=== PATIENT | male | born 1965 | race Two or more races ===

== ENCOUNTER 2019-04-28 09:09 | Inpatient (IN) | payer OTHER ==
[~2019-04-28] VITALS: Ht 167.6 cm; Wt 83.5 kg
--- NOTE | 2019-04-28 09:41 | NUR ---
[facility]. TO ER BED 1. CALLED IN BY . AAOX1. BULGARIAN SPEAKING. NOT IN RESP DISTRESS, BREATHING EVEN AND UNLABORED. BROUGHT FOR ALTERED MENTAL STATUS. PER REPORT, PT HAS BEEN NOTED SINCE MIDNIGHT THAT HE IS NOT HIMSELF PER THE , HE IS RAMBLING AND HAVING UNSTEADY GAIT WHILE GOING TO THE BATHROOM. UPON ASSESSMENT, PT DENIES AND MEDICAL ISSUES. NOTED ABD DISTENTION. BILAT LOWER EXT EDEMA +4. SCLERAL YELLOWING. MD WAS AT BEDSIDE FOR EVAL. ORDERS RECEIVED NOTED AND CARRIED OUT. IV LINE ON L & R HAND 20G. BLOOD DRAWN AND GIVEN TO IMPROVEMENT LEADER AT BEDSIDE.
[2019-04-28 09:43] LABS: BASOPHILS % (AUTO) 0.2 % (0.0-2.0); EOSINOPHILS % (AUTO) 1.7 % (0.0-6.0); HEMATOCRIT 31 % (39-51); HEMOGLOBIN 10.1 g/dL (13.5-17.5); LYMPHOCYTES # (AUTO) 0.3 /CMM (0.8-4.8); LYMPHOCYTES % (AUTO) 5.3 % (20.0-44.0); MEAN CORPUSCULAR HGB CONC 33 g/dl (31.0-36.0); MEAN CORPUSCULAR VOLUME 110 fL (80-96); MONOCYTES # (AUTO) 0.6 /CMM (0.1-1.30); MONOCYTES % (AUTO) 8.9 % (2.0-12.0); NEUTROPHILS # (AUTO) 5.2 /CMM (1.8-8.9); NEUTROPHILS % (AUTO) 83.9 % (43.0-81.0); PLATELET COUNT (AUTO) 77 /CMM (150-450); RED BLOOD CELL COUNT(AUTO) 2.79 MIL/uL (4.5-6.0); WHITE BLOOD COUNT (AUTO) 6.2 K/uL (4.3-11.0)
[2019-04-28 09:50] LABS: CALCIUM, SERUM 8.2 mg/dL (8.5-10.1); CARBON DIOXIDE 21 mmol/L (21-32); CHLORIDE 105 mmol/L (98-107); GLUCOSE 96 mg/dL (74-106); POTASSIUM 4.3 mmol/L (3.5-5.1); SODIUM SERUM 135 mmol/L (136-145); UREA NITROGEN, BLOOD 15 mg/dL (7-18)
[2019-04-28 10:00] LABS: ALANINE AMINOTRANSFERASE 53 U/L (12-78); ALCOHOL, BLOOD < 3 mg/dL (0-0); ALKALINE PHOSPHATASE 232 U/L (46-116); ASPARTATE AMINOTRANSFERASE 161 U/L (15-37); BILIRUBIN,DIRECT 5.9 mg/dL (0.0-0.2); BILIRUBIN,TOTAL 8.9 mg/dL (0.2-1.0); TOTAL PROTEIN, SERUM 7.6 g/dL (6.4-8.2)
--- NOTE | 2019-04-28 10:07 | NUR ---
URINE COLLECTED VIA I&O WITH STRICT STERILE TECHNIQUE OBSERVED DURING PROCEDURE
--- NOTE | 2019-04-28 10:08 | NUR ---
PT TO CT ON LORRAINE
[2019-04-28 10:10] LABS: ALBUMIN 1.4 g/dL (3.4-5.0)
[2019-04-28 10:13] LABS: BILIRUBIN,URINE LARGE (NEGATIVE); BLOOD, URINE Small Ery/uL (NEGATIVE); KETONES,URINE Trace (NEGATIVE); LEUKOCYTE ESTERASE ,URINE Negative (NEGATIVE); NITRITE, URINE Negative (NEGATIVE); PROTEIN,URINE Negative (NEGATIVE); UGLUCOSE Negative (NEGATIVE); UROBILINOGEN,URINE 0.2 EU/dL (0.2)
[2019-04-28 10:17] LABS: APPEARANCE,URINE HAZY (CLEAR); COLOR,URINE DARK YELLOW (YELLOW)
[2019-04-28 10:28] LABS: BACTERIA,URINE Few /HPF (None Seen); SQUAMOUS EPITHELIAL CELL,UR Few /HPF (None Seen)
[2019-04-28 10:30] LABS: SERUM AMMONIA 85 umol/L (11-32)
[2019-04-28 10:31] LABS: THYROID STIMULATING HORMONE 5.186 uIU/mL (0.358-3.74)
[2019-04-28 11:29] LABS: LYMPHOCYTES % (MANUAL) 8 % (16-48); MONOCYTES % (MANUAL) 12 % (0-11.0); NEUTROPHILS % (MANUAL) 80 (42-76)
[2019-04-28] MEDS ORDERED: LACTULOSE 10 G/15 ML UDC (PYXIS) ONE (11:29)
[2019-04-28] MEDS ORDERED: LACTULOSE 10 G/15 ML UDC (PYXIS) PO ONE (11:30)
[2019-04-28] MEDS ORDERED: IV NS 0.9% 500 ML IV ONE (11:30)
--- NOTE | 2019-04-28 11:34 | NUR ---
TURNED IN MOVE SHEET, AND CALLED FOR TELE-BED
[2019-04-28] MEDS ORDERED: PANT40TA4 PO (11:39)
[2019-04-28] MEDS ORDERED: FURO40TA5 PO (11:39)
[2019-04-28] MEDS ORDERED: FERR325T23 PO (11:39)
[2019-04-28] MEDS ORDERED: CIPR500T5 PO (11:39)
[2019-04-28] MEDS ORDERED: LACT10SO4 PO (11:39)
[2019-04-28] MEDS ORDERED: PROP10TA68 PO (11:39)
[2019-04-28] MEDS ORDERED: SPIR50TA5 PO (11:39)
[2019-04-28] MEDS ORDERED: HYDR-500 PO (11:39)
[2019-04-28] MEDS ORDERED: RIFA550T PO (11:40)
--- NOTE | 2019-04-28 12:18 | NUR ---
TELE BED 311
[2019-04-28] MEDS ORDERED: ONDANSETRON HCL/PF 4 MG/2 ML VIAL IVP PRN (12:30)
[2019-04-28] MEDS ORDERED: Z GUARD REMEDY 2 OZ OINT TP PRN (12:30)
[2019-04-28] MEDS ORDERED: ACETAMINOPHEN 325 MG TABLET PO PRN (12:30)
[2019-04-28] MEDS ORDERED: ACETAMINOPHEN 650 MG/SUPP.RECT RC PRN (12:30)
--- NOTE | 2019-04-28 12:40 | NUR ---
US ABDOMEN DONE
--- NOTE | 2019-04-28 12:44 | NUR ---
REPORT GIVEN TO GT GRAY. PT GOING TO ROOM 311.
[2019-04-28 13:00] VITALS: BP 120/76
[2019-04-28] MEDS ORDERED: LACTULOSE 10 G/15 ML UDC (PYXIS) PO PRN (13:00)
--- NOTE | 2019-04-28 13:00 | NUR ---
BARN OPERATOR NOTES RECEIVED PATIENT VIA GURNEY, TRANSFERRED TO BED. ORIENTED PATIENT TO ROOM, CALL LIGHT AND UNIT. PATIENT ALERT AND ORIENTED X2. ON TELE MONITORING SR: 86. NOTED GENERALIZED SKIN AND BILATERAL EYES WITH JAUNDICE WITH ABDOMINAL DISTENTION. PATIENT AMBULATORY WITH UNSTEADY GAIT. NO SOB. DENIES ANY C/O PAIN NOR DISCOMFORT AT THIS TIME. RT AND LT HAND SL# 20 INTACT AND PATENT. PATIENT REQUIRES FREQUENT REMINDERS DUE TO CONFUSION. BED ALARM ON. BED IN LOWEST POSITION, LOCKED. CALL LIGHT WITHIN REACH. FREQUENT VISUAL CHECK DONE.
[2019-04-28] MEDS: ALBUMIN 25% 25 GM in PREMIX 1 EA IV SCH ×2 (13:45→19:54)
[2019-04-28 16:00] VITALS: BP 107/64
--- NOTE | 2019-04-28 16:40 | NUR ---
SPANISH PROFESSOR NOTES RECEIVED N.O. FROM ANTON TO CHANGE LACTULOSE TO TID FROM PRN. NOTED AND CARRIED OUT.
[2019-04-28] MEDS: RIFAXIMIN 550 MG TABLET PO SCH (16:52)
[2019-04-28] MEDS: LACTULOSE 10 G/15 ML UDC (PYXIS) PO SCH (16:52)
--- NOTE | 2019-04-28 18:57 | NUR ---
SCRUB TECHNICIAN NOTES PATIENT RESTING COMFORTABLY IN BED. NO S/S OF RESPIRATORY DISTRESS. DENIES ANY C/O PAIN NOR DISCOMFORT AT THIS TIME. RT AND LT HAND SL# 20 INTACT AND PATENT. BED ALARM ON. BED IN LOWEST POSITION, LOCKED. CALL LIGHT WITHIN REACH. FREQUENT VISUAL CHECK DONE. IN NO APPARENT DISTRESS.
--- NOTE | 2019-04-28 19:10 | NUR ---
RN OPENING NOTES: RECEIVED PATIENT IN BED, AWAKE A/O X4. BED IN LOWEST AND LOCKED POSITION. BED ALARM ON AT ALL TIMES. CALL LIGHT WITHIN REACH. NPO EXCEPT MEDS, MEDICAL SERVICE TECHNICIAN AWARE, PATIENT AWARE. WITH DISTENDED ABDOMEN. SKIN IS JAUNDICED AND WITH YELLOW SCLERAE. BLE EDEMA PITTING.
[2019-04-28 20:00] VITALS: BP 106/71
--- NOTE | 2019-04-28 20:15 | NUR ---
ASSISTED THE PATIENT TO THE [id number] ASSIST, STEADY GAIT. PATIENT IS ALERT AND ORIENTED X4 AT THIS TIME. PATIENT SAID HE JUST HAD A BM. PATIENT IS NPO EXCEPT MEDS, PATIENT IS AWARE, BUTTER FAT TESTER AWARE.
--- NOTE | 2019-04-28 21:03 | NUR ---
V/S taken by BANDER,afebrile. Recorded.
[2019-04-29] VITALS: BP 108/61
[2019-04-29] MEDS: ALBUMIN 25% 25 GM in PREMIX 1 EA IV SCH ×2 (00:31→05:57)
--- NOTE | 2019-04-29 01:36 | NUR ---
Patient showed his right abdomen with very small scratched skin, patient said that he accidentally scratched it, no bleeding noted,covered with gauze and secured with paper tape and tegaderm.
[2019-04-29 04:00] VITALS: BP 105/61
[2019-04-29 04:02] VITALS: BP 105/61
--- NOTE | 2019-04-29 05:38 | NUR ---
RN CLOSING NOTES: PATIENT IN BED, A/O X4. NO COMPLAIN OF PAIN DURING SHIFT. NO SOB NOTED. AMBULATORY, STEADY GAIT. HAD BM X5 DURING SHIFT,PATIENT SAID IT'S WATERY AND YELLOWISH OUTPUT. V/S STABLE, AFEBRILE. BED ALARM ON AT ALL TIMES. BED IN LOWEST AND LOCKED POSITION.CALL LIGHT WITHIN REACH. ABDOMEN STILL DISTENDED, JAUNDICED SKIN AND SCLERAE. NPO EXCEPT MEDS. PATIENT WANTS TO HAVE A SHOWER LATER TODAY AT 1000, WILL ENDORSE TO THE UPCOMING SHIFT RN. BLE EDEMA.
[2019-04-29 06:56] LABS: BASOPHILS % (AUTO) 1.3 % (0.0-2.0); EOSINOPHILS % (AUTO) 5.7 % (0.0-6.0); HEMATOCRIT 27 % (39-51); HEMOGLOBIN 9.1 g/dL (13.5-17.5); LYMPHOCYTES # (AUTO) 0.4 /CMM (0.8-4.8); MEAN CORPUSCULAR HGB CONC 34 g/dl (31.0-36.0); MEAN CORPUSCULAR VOLUME 109 fL (80-96); MONOCYTES # (AUTO) 0.4 /CMM (0.1-1.30); MONOCYTES % (AUTO) 12.5 % (2.0-12.0); NEUTROPHILS # (AUTO) 2.4 /CMM (1.8-8.9); NEUTROPHILS % (AUTO) 69.5 % (43.0-81.0); PLATELET COUNT (AUTO) 61 /CMM (150-450); RED BLOOD CELL COUNT(AUTO) 2.45 MIL/uL (4.5-6.0); WHITE BLOOD COUNT (AUTO) 3.5 K/uL (4.3-11.0)
[2019-04-29 07:26] LABS: BAND % (MANUAL) 1 % (0.0-5.0); EOSINOPHILS % (MANUAL) 4 % (0-4); LYMPHOCYTES % (MANUAL) 15 % (16-48); MONOCYTES % (MANUAL) 11 % (0-11.0); NEUTROPHILS % (MANUAL) 69 (42-76)
--- NOTE | 2019-04-29 07:37 | NUR ---
COLLECTOR OF AQUARIUM SPECIMENS OPENING NOTE PATIENT IN BED RESTING COMFORTABLY. PATIENT IN NO ACUTE DISTRESS. NO SOB NOTED. PATIENT BREATHING IS EVEN AND UNLABORED. PATIENT ON TELE MONITORING READING SINUS RHYTHM HR 90. PATIENT BED ALARM IS ON. PATIENT SAFETY PRECAUTIONS IN PLACE. PATIENT BED IS LOCKED AND IN LOWEST POSITION. CALL LIGHT WITHIN REACH. WILL CONTINUE TO MONITOR.
[2019-04-29 08:00] VITALS: BP 100/53
[2019-04-29] MEDS: RIFAXIMIN 550 MG TABLET PO SCH ×2 (08:53→16:29)
[2019-04-29 08:54] LABS: BILIRUBIN,TOTAL 10.9 mg/dL (0.2-1.0); CALCIUM, SERUM 8.4 mg/dL (8.5-10.1); CREATININE 0.8 mg/dL (0.6-1.3); MAGNESIUM 1.7 mg/dL (1.8-2.4); PHOSPHORUS 3.4 mg/dL (2.5-4.9)
[2019-04-29] MEDS: LACTULOSE 10 G/15 ML UDC (PYXIS) PO SCH ×3 (08:54→16:29)
--- NOTE | 2019-04-29 08:57 | NUR ---
DYEING MACHINE BACK TENDER NOTE PERFORMED NURSING SWALLOW EVALUATION/SCREENING. NO SIGNS OF COUGHING OR ASPIRATION. PATIENT TOLERATED WELL. NOTIFIED ANTON ANGULO. NEW ORDER TO PLACE PATIENT ON CARDIAC DIET AT THIS TIME.
[2019-04-29] MEDS: Magnesium 1GM/D5W 100ML PREMIX 100 ML IV SCH ×2 (10:06→11:10)
[2019-04-29 16:00] VITALS: BP 108/64
[2019-04-29] MEDS: PROPRANOLOL HCL 10 MG TABLET PO SCH (16:28)
[2019-04-29] MEDS: FUROSEMIDE 40 MG TABLET PO SCH (16:29)
[2019-04-29] MEDS: FERROUS SULFATE (325 MG) 325 MG/TAB TABLET PO SCH (16:29)
--- NOTE | 2019-04-29 18:20 | NUR ---
REHAB DIRECTOR CLOSING NOTE PATIENT IN BED RESTING COMFORTABLY. PATIENT IN NO ACUTE DISTRESS. NO SOB NOTED. PATIENT BREATHING IS EVEN AND UNLABORED. PATIENT KEPT CLEAN, DRY AND COMFORTABLE THROUGHOUT SHIFT. PATIENT ON CARDIAC MONITORING READING SINUS RHYTHM HR 86. NEEDS AND CONCERNS ADDRESSED. PATIENT COMPLAINS OF NO PAIN AT THIS TIME. PATIENT BED ALARM IS ON. PATIENT SAFETY PRECAUTIONS IN PLACE. PATIENT BED IS LOCKED AND IN LOWEST POSITION. CALL LIGHT WITHIN REACH. WILL ENDORSE CARE TO PM SHIFT FOR CHRISTOPHER.
[2019-04-29 20:00] VITALS: BP 125/75
--- NOTE | 2019-04-29 20:36 | NUR ---
MS/RN PATIENT IS AWAKE, ALERT, ORIENTED, COMFORTABLE, NO C/O PAIN, NO DISTRESS NOTED, CALL LIGHT IN REACH. WILL MONITOR.
--- NOTE | 2019-04-30 06:43 | NUR ---
MS/RN PATIENT IS AWAKE AT THIS TIME, COMFORTABLE, NO SIGNS OF DISTRESS NOTED, ALL NEEDS ATTENDED AT THIS TIME, WILL CONTINUE TO MONITOR.
[2019-04-30 07:22] LABS: BASOPHILS % (AUTO) 1.3 % (0.0-2.0); EOSINOPHILS % (AUTO) 7.9 % (0.0-6.0); HEMATOCRIT 25 % (39-51); HEMOGLOBIN 8.4 g/dL (13.5-17.5); LYMPHOCYTES # (AUTO) 0.4 /CMM (0.8-4.8); LYMPHOCYTES % (AUTO) 12.2 % (20.0-44.0); MEAN CORPUSCULAR HGB CONC 34 g/dl (31.0-36.0); MEAN CORPUSCULAR VOLUME 108 fL (80-96); MONOCYTES # (AUTO) 0.6 /CMM (0.1-1.30); MONOCYTES % (AUTO) 15.8 % (2.0-12.0); NEUTROPHILS # (AUTO) 2.3 /CMM (1.8-8.9); NEUTROPHILS % (AUTO) 62.8 % (43.0-81.0); PLATELET COUNT (AUTO) 60 /CMM (150-450); RED BLOOD CELL COUNT(AUTO) 2.27 MIL/uL (4.5-6.0); WHITE BLOOD COUNT (AUTO) 3.6 K/uL (4.3-11.0)
[2019-04-30 08:00] VITALS: BP_SYST 109; BP_SYST 95; BP_DIAS 58; BP_DIAS 70
[2019-04-30 08:10] LABS: CALCIUM, SERUM 7.9 mg/dL (8.5-10.1); CREATININE 0.8 mg/dL (0.6-1.3); EOSINOPHILS % (MANUAL) 4 % (0-4); LYMPHOCYTES % (MANUAL) 11 % (16-48); MAGNESIUM 1.6 mg/dL (1.8-2.4); MONOCYTES % (MANUAL) 10 % (0-11.0); NEUTROPHILS % (MANUAL) 75 (42-76); PHOSPHORUS 3.5 mg/dL (2.5-4.9); POTASSIUM 3.9 mmol/L (3.5-5.1)
[2019-04-30] MEDS ORDERED: SPIRONOLACTONE 25 MG TABLET PO SCH (09:00)
[2019-04-30] MEDS: FERROUS SULFATE (325 MG) 325 MG/TAB TABLET PO SCH (09:59)
[2019-04-30] MEDS: Magnesium 1GM/D5W 100ML PREMIX 100 ML IV SCH ×2 (09:59→10:16)
[2019-04-30] MEDS: LACTULOSE 10 G/15 ML UDC (PYXIS) PO SCH ×2 (09:59→12:25)
[2019-04-30] MEDS: FUROSEMIDE 40 MG TABLET PO SCH (09:59)
[2019-04-30] MEDS: PROPRANOLOL HCL 10 MG TABLET PO SCH (10:00)
[2019-04-30] MEDS: RIFAXIMIN 550 MG TABLET PO SCH (10:00)
[2019-04-30] MEDS ORDERED: Magnesium 1GM/D5W 100ML PREMIX 100 ML IV SCH (10:30)
[2019-04-30] MEDS ORDERED: INFLUENZA VACCINE 2019-20 0.5 ML DISP.SYRIN IM ONE (14:00)
[2019-04-30 16:00] VITALS: BP 104/64
--- NOTE | 2019-04-30 16:09 | NUR ---
Pt A/O x 4, but forgetful at times. Pt's at bedside. All VS stable. PIV x2 removed. No oozing or complications noted at PIV sites. No distress noted or reported. Pt denied any pain or discomfort. All discharge instructions given in Omani. Pt and pt's , Jody, verbalized understanding. Pt safety maintained during shift. Pt's home med returned. Pt safely discharged and accompanied pt and Jody to curbside via ambulation.
== END 2019-04-30 16:00 | disposition home or self-care (01) | DRG 279 ==
LOC: ER 09:13 → TELE 12:31 → MED 04-29 18:42
PROVIDERS: ADMIT Nurse Practitioner Acute Care; ATTEND Nurse Practitioner Acute Care
DX: K72.90 Hepatic failure, unspecified without coma (principal); E43 Unspecified severe protein-calorie malnutrition; J90 Pleural effusion, not elsewhere classified; R18.8 Other ascites; E83.42 Hypomagnesemia; K74.60 Unspecified cirrhosis of liver; Z79.899 Other long term (current) drug therapy; J98.11 Atelectasis; F10.20 Alcohol dependence, uncomplicated; Y90.0 Blood alcohol level of less than 20 mg/100 ml
CPT/HCPCS: 36415; 70450-TC; 71045-TC; 76705-TC; 80048-TC; 80053-TC; 80061-TC; 80076-TC; 80305; 81000-TC; 82140-TC; 83735-TC; 84100-TC; 84439-TC; 84443-TC; 84484-TC; 85025-TC; 85730-TC; 86850-TC; 87081-TC; A4216; G0378; G0480; J3475; J7040; P9047; Q2036

== ENCOUNTER 2019-05-20 10:38 | Emergency (ER) | payer OTHER ==
[~2019-05-20] VITALS: Ht 165.1 cm; Wt 72.6 kg
[~2019-05-20 10:38] MED LIST: CIPR500T5 PO; FERR325T23 PO; FURO40TA5 PO; HYDR-500 PO; LACT10SO4 PO; PANT40TA4 PO; PROP10TA68 PO; RIFA550T PO; SPIR50TA5 PO
--- NOTE | 2019-05-20 10:38 | NUR ---
called to triage, not ready to come in
[2019-05-20 10:42] VITALS: BP 113/70
[2019-05-20] MEDS ORDERED: TRAMADOL HCL 50 MG TABLET PO ONE (11:00)
[2019-05-20] MEDS ORDERED: TRAMADOL HCL 50 MG TABLET ONE (11:01)
== END 2019-05-20 12:15 | disposition home or self-care (01) ==
LOC: ER 10:39
DX: M79.18 Myalgia, other site (principal)
CPT/HCPCS: 73590-TC